=== PATIENT | male | born 1960 | race Caucasian/White ===

== ENCOUNTER 2017-03-03 09:34 | Day surgery (SDC) | payer BC ==
--- NOTE | ~2017-03-03 | OP ---
Record Of Operation [facility] [address] [place]. [address] NAME: ARNALDO SCOTT : 60 STATUS : [facility] [place] PAT#: [id number] AGE: 56 ADM/REG DATE : 03/03/17 MR#: [id number] REPORT SERV DATE: 03/03/17 DICTATED BY: JOHN ESPINOZA DATE: 03/03/17 REPORT STATUS : Draft TRANSCRIBED BY: ISAAC DATE: 03/03/17 DATE OF PROCEDURE: 03/03/2017 PREPROCEDURE DIAGNOSIS: History of polyps. POSTPROCEDURE DIAGNOSES: Multiple polyps noted at 20 cm, more than five polyps, and then at 50 cm, which was transverse colon, there were two polyps that were removed, also had mild diverticulosis, and grade 1 internal hemorrhoids which is a normal finding. PROCEDURE: Colonoscopy with hot biopsy polypectomy. DESCRIPTION OF PROCEDURE: The patient was taken to the endoscopy suite, positioned in the left lateral decubitus position. Informed consent was obtained, followed by IV sedation delivered by SUB MASTER. Digital rectal exam was performed, normal sphincter tone, no masses. The scope was navigated without difficulty to the ileocecal valve where the appendiceal orifice was identified. Prep was adequate. More than 90% of the mucosa was visualized. There were two polyps noted at 50 cm, this was transverse colon, they measured about 5 mm and was sessile, somewhat diminutive, and removed with hot biopsy polypectomy technique. The scope was then withdrawn through the sigmoid colon. There was scattered diverticulosis and at 20 cm a cluster of polyps, there were more than five polyps removed in entirety, they were all removed using hot biopsy polypectomy technique, and were between 2 and 5 mm in size. The scope was then withdrawn into the rectum, retroflexed on itself showing grade 1 internal hemorrhoids which is a normal finding, and then scope was withdrawn. He tolerated the procedure well. BRIDGET/ISAAC John Espinoza M.D. / [id number] CC: Jori Vance II, M.D.
[~2017-03-03 09:34] MED LIST: ALLERTEC PO; METHOC500B PO; NORCO1 TAB PO; PRIN10 PO; PROTONIX PO
== END 2017-03-03 23:59 | disposition home or self-care (01) ==
LOC: DMU 09:34
PROVIDERS: Surgery
PROC: 0DBM8ZX Excision of Descending Colon, Via Natural or Artificial Opening Endoscopic, Diagnostic (ICD-10-PCS; 2017-03-03)
PROC: 0DBN8ZX Excision of Sigmoid Colon, Via Natural or Artificial Opening Endoscopic, Diagnostic (ICD-10-PCS; principal; 2017-03-03 11:30)
DX: Z12.11 Encounter for screening for malignant neoplasm of colon (principal); K63.5 Polyp of colon; K64.0 First degree hemorrhoids; K57.30 Diverticulosis of large intestine without perforation or abscess without bleeding; I10 Essential (primary) hypertension; F17.210 Nicotine dependence, cigarettes, uncomplicated; K21.9 Gastro-esophageal reflux disease without esophagitis; Z88.8 Allergy status to other drugs, medicaments and biological substances; Z86.010 Personal history of colon polyps; Z98.890 Other specified postprocedural states
CPT/HCPCS: 88305